=== PATIENT | male | born 1975 | race Caucasian/White ===

== ENCOUNTER 2020-03-05 16:28 | Outpatient (REF) | payer BC, SELFPAY | END 2020-03-05 16:29 | disposition home or self-care (01) | LOC: HO.LAB 16:28 | PROVIDERS: PCP Nurse Practitioner; Visit Provider Internal Medicine | DX: Z20.828 Contact with and (suspected) exposure to other viral communicable diseases (principal) | CPT/HCPCS: C9803; U0003 ==

== ENCOUNTER 2024-10-30 15:58 | Outpatient (AMB) | payer BC, SELFPAY ==
--- OUTSIDE RECORDS SUMMARY | 2024-10-30 16:00 | XMS_ITS | Encounter Summary ---
Author Organization [facility] Address [address] [place] [phone] Phone Care Team Providers Care Babcock Tester Name Role Phone Aracelis Garcia NP Primary Care Provider [phone] Encounter Details Date Type Department Care Team ([facility] st Contact Info) Description 10/14/2020 Procedure Pass OR Admitting Dept - Virtual Department [address] [place] [address] Social History Tobacco Use Types Packs/Day Years Used Date Smoking Tobacco: Never Smokeless Tobacco: Never Alcohol Use Standard Drinks/Week Comments Yes 0 (1 standard drink = 0.6 oz pur e alcohol) 4 per week Sex and Gender Information Value Date Recorded Sex Assigned at Male 03/12/2020 11:14 AM EST Legal Sex Male 11:05 AM EST Gender Identity Male 03/12/2020 11:14 AM EST Sexual Orientation Straight 03/12/2020 11 :14 AM EST documented as of this encounter Plan of Treatment Not on file documented as of this encounter Visit Diagnoses Not on filedocumented in this encounter Additional Health Concerns Infection Onset Date Last Indicated Resolved Time CoV-Risk 02/26/2022 02/26/2022 03/09/2022 1:23 AM EST documented as of this encounter Care Teams Babcock Tester Relationship Specialty Start Date End Date Aracelis Garcia NP [address] [place] [phone] [email or web address] PCP - General 03/12/20 documented as of this encounter Additional Source Comments The information contained in this document represents components of the legal health record. It is not the complete legal health record.[facility]
[2024-10-30 16:06] VITALS: BP 148/96; PULSE 99; O2SAT 98; BMI 32.5
--- NOTE | 2024-10-30 16:06 | A.OFFVIS_ITS ---
Vital Signs 10/30/24 16:06 Height 6 ft 3 in Weight 260 lb BMI 32.5 BP 148/96 H Blood Pressure Location Rt brachial Position Sitting Pulse 99 Pulse Source Pulse Oximeter Pulse Oximetry (%) 98 Oxygen Delivery Method Room Air Intake Visit Reasons: MAT Intake Allergies No Known Allergies Allergy (Verified 10/30/24 16:44) Medication List - Last Reconciled 11/04/24 by PRADIP HansenC amlodipine-benazepril 10-20 mg 1 cap PO DAILY sertraline 100 mg PO DAILY sertraline 25 mg PO DAILY 30 days HPI Comments Details: A 49-year-old male presents for a MAT intake for alcohol use disorder. Reports with 3 adult sons works full-time as a senior construction estimator and engages in weekend drinking of 3-5 beers, reduce consumption from hard liquor. Primary care provider prescribed naltrexone tablets which patient reports taking intermittently. Not interested in attending AA is open to a referral for a cryolite recovery operator and reports vague interest in Vivitrol. Has a past histroy of Vivotrol use for two months and decided to stop the injections. Not engaged with mental health services and at present not interested in services. Denies use of opioids, and other substances does report cannabis use. Review of Systems Const All systems reviewed & are unremarkable except as noted in HPI and below Physical Exam Vital Signs: Last Vital Signs Pulse 99 10/30/24 16:06 BP 148/96 H 10/30/24 16:06 Pulse Ox 98 10/30/24 16:06 Oxygen Delivery Method Room Air 10/30/24 16:06 BMI result Body Mass Index 32.5 Const General: cooperative Orientation/consciousness: patient oriented x3 Limitations: no limitations Neuro General: patient oriented x3 Psych Appearance: well kempt Mental Status: mental status grossly normal Speech and movement: Normal speech and movement present Affect: normal affect Attitude: cooperative Thought process: Normal thought process present Insight: Fair insight present (Psych) Judgement: Fair judgement present (Psych) Assessment & Plan Assessment & Plan (1) Alcohol use disorder: Code(s): F10.90 - Alcohol use, unspecified, uncomplicated Category: Medical Plan The plan is to send referral for cryolite recovery operator, continue with naltrexone tablets as prescribed by PCP and re-start on sertraline 25 mg. Start on folic acid 1 mg daily and thiamine 100 mg daily. Education provided re: risk reduction activities to minimize quantity/frequency of alcohol and cannabis use. Follow up in 3 weeks to further discuss readiness for Vivitrol injection. Orders: Orders AMB 14 Panel Urine Drug Screen 10/30/24 Z51.81 - Encounter for therapeutic drug level monitoring Medications: New thiamine mononitrate (vit B1) Take one tablet by mouth daily. 100 mg PO DAILY 30 tabs 0RF 30 days folic acid Take one tablet by mouth daily. 1 mg PO DAILY 30 tabs 0RF 30 days sertraline Take one tablet by mouth daily. 25 mg PO DAILY 30 tabs 0RF 30 days Patient Instructions: - Continue with naltrexone tablets as prescribed by PCP. - Restart sertraline as prescribed. - Referral to be sent for a cryolite recovery operator. - Reduce consumption of alcohol and cannabis quantity/frequency. - Call with questions, concerns, or to report side effects/new onset of symptoms to [facility]. - The patient verbalized understanding and agreed with plan of care. Coding Level of Care Code New Pt Level 3 (46658) Diagnoses Alcohol use disorder F10.90
== END 2024-10-30 16:48 | disposition home or self-care (01) ==
LOC: HO.HCC 15:58
PROVIDERS: PCP Nurse Practitioner; Visit Provider Clinical Nurse Specialist Psychiatric/Mental Health
DX: F10.90 Alcohol use, unspecified, uncomplicated (principal)
CPT/HCPCS: 99203